=== PATIENT | female | born 1995 | race American Indian/Alaskan Native ===

== ENCOUNTER 2020-09-23 13:39 | Emergency (ER) | payer SELFPAY ==
[2020-09-23 14:07] VITALS: BP 117/68
--- NOTE | 2020-09-23 14:54 | Event Note ---
ED Screening Note ED Screening Note: +dysuria a few days ago +vaginal discharge states she is on abx for a dental issue and believes she may have a yeast infection no abd pain no n/v/d no fever LNMP: 08/26/2020 onchomycosis of the toes This initial assessment/diagnostic orders/clinical plan/treatment(s) is/are subject to change based on patients health status, clinical progression and re- assessment by fellow clinical providers in the ED. Further treatment and workup at subsequent clinical providers discretion. Patient/guardian urged not to elope from the ED as their condition may be serious if not clinically assessed and managed. Initial orders include: ua, urine preg
[2020-09-23 16:32] LABS: Bilirubin,Urine NEG (Negative); Blood,Urine NEG (Negative); Color,Urine Straw (Yellow); HCG Qualitative,Urine Negative (Negative); Mucus,Urine FEW /HPF; Protein,Urine <15 mg/dL mg/dL (Negative); Urobilinogen,Urine < 2.0 mg/dL (<2.0)
--- NOTE | 2020-09-23 16:36 | Emergency Department Report ---
ED General Adult HPI - General Chief complaint: Urogenital-Female Stated complaint: LOWER BODY PAIN Time Seen by Provider: 09/23/20 14:49 Source: patient Mode of arrival: Ambulatory Limitations: No Limitations - History of Present Illness Initial comments: 25-year-old female with no significant past medical history presented with chief complaints of "a toenail issue" and vaginal irritation. She states that she is currently on antibiotics for a dental infection and has been on those for about 1 week and for the past 3 days has had vaginal itching and a white discharge and is concerned she has a yeast infection. States that she is not really concerned for STIs today and believes this is antibiotic related. She also reports that for several weeks she has noticed that her toenails especially the great toes have been thickened and raising up off the nailbed. Symptoms are mild in nature, nonradiating, no alleviating or exacerbating factors. No other associated symptoms. Denies any abdominal pain, fevers, vomiting. - Related Data Previous Rx's Medication Instructions Recorded Last Taken Type Ibuprofen [Motrin] 600 mg PO Q8H PRN #20 tablet 04/05/19 Unknown Rx methOCARBAMOL [Robaxin TAB] 500 mg PO Q6H PRN #14 tablet 04/05/19 Unknown Rx traMADoL [Ultram] 50 mg PO Q6HR PRN #12 tablet 04/05/19 Unknown Rx Fluconazole [Diflucan TAB] 200 mg PO ONCE #2 tablet 09/23/20 Unknown Rx Terbinafine HCl [Antifungal 1% 1 applicatio TP BID #30 g 09/23/20 Unknown Rx CREAM] Allergies Allergy/AdvReac Type Severity Reaction Status Date / Time No Known Allergies Allergy Verified 04/05/19 09:59 ED Review of Systems ROS: Stated complaint: LOWER BODY PAIN Other details as noted in HPI Comment: All other systems reviewed and negative Genitourinary: as per HPI ED Past Medical Hx - Past Medical History Previous Medical History?: No - Surgical History Past Surgical History?: Yes Additional Surgical History: cyst removal left breast, cyst removal neck, faroese butt lift - Social History Smoking Status: Never Smoker Substance Use Type: None - Medications Home Medications: Home Medications Medication Instructions Recorded Confirmed Last Taken Type Ibuprofen [Motrin] 600 mg PO Q8H PRN #20 tablet 04/05/19 Unknown Rx methOCARBAMOL [Robaxin TAB] 500 mg PO Q6H PRN #14 tablet 04/05/19 Unknown Rx traMADoL [Ultram] 50 mg PO Q6HR PRN #12 tablet 04/05/19 Unknown Rx Fluconazole [Diflucan TAB] 200 mg PO ONCE #2 tablet 09/23/20 Unknown Rx Terbinafine HCl [Antifungal 1% 1 applicatio TP BID #30 g 09/23/20 Unknown Rx CREAM] ED Physical Exam - General Limitations: No Limitations General appearance: alert, in no apparent distress - Head Head exam: Present: atraumatic, normocephalic - Eye Eye exam: Present: normal appearance - ENT ENT exam: Present: mucous membranes moist - Neck Neck exam: Present: normal inspection - Respiratory Respiratory exam: Present: normal lung sounds bilaterally. Absent: respiratory distress - Cardiovascular Cardiovascular Exam: Present: regular rate, normal rhythm. Absent: systolic murmur, diastolic murmur, rubs, gallop - GI/Abdominal GI/Abdominal exam: Present: soft, normal bowel sounds. Absent: tenderness, guarding - External exam: Present: other (Patient deferred) - Extremities Exam Extremities exam: Present: other (Onychomycosis suspected to the great toenails however gel nail ukrainian in place limits assessment, no sign of bacterial infection) - Back Exam Back exam: Present: normal inspection - Neurological Exam Neurological exam: Present: alert, oriented X3 - Psychiatric Psychiatric exam: Present: normal affect, normal mood - Skin Skin exam: Present: warm, dry, intact, normal color. Absent: rash ED Course Vital Signs 09/23/20 14:04 Temperature 98.3 F Pulse Rate 85 Respiratory 16 Rate Blood Pressure 117/68 [Left] O2 Sat by Pulse 100 Oximetry ED Medical Decision Making - Medical Decision Making Patient present with complaints of abnormal toenails, exam consistent with onychomycosis. Will prescribe topical therapy first and advise if oral therapy necessary should follow up with primary care. She also has complaints of possible yeast infection after being started on antibiotics. She is also concerned about BV but states she is not concerned about STIs. She does not want a pelvic exam today understanding that I cannot officially diagnose BV without taking cultures. We will treat with a single dose of Flagyl and discharged on fluconazole and topical therapy for onychomycosis. - Differential Diagnosis Candidal vulvovaginitis, onychomycosis, BV, STI Critical care attestation.: If time is entered above; I have spent that time in minutes in the direct care of this critically ill patient, excluding procedure time. ED Disposition Clinical Impression: Onychomycosis, Vaginal yeast infection Disposition: TO HOME OR SELFCARE Is pt being admited?: No Condition: Good Instructions: Fungal Nail Infection, Vaginal Yeast Infection, Adult Prescriptions: Terbinafine HCl [Antifungal 1% CREAM] 1 applicatio TP BID #30 g Fluconazole [Diflucan TAB] 200 mg PO ONCE #2 tablet Referrals: MARY ELLEN TAYLOR MD [Staff Physician] - 3-5 Days Time of Disposition: 16:45
[2020-09-23] MEDS ORDERED: metroNIDAZOLE 500 MG TAB PO ONE (16:41)
== END 2020-09-23 17:04 | disposition home or self-care (01) ==
LOC: ED 13:39
DX: B35.1 Tinea unguium (principal); B37.3 Candidiasis of vulva and vagina; Z79.899 Other long term (current) drug therapy; Z98.890 Other specified postprocedural states
CPT/HCPCS: 81001; 81025

== ENCOUNTER 2020-12-25 20:35 | Emergency (ER) | payer SELFPAY ==
[2020-12-25 20:59] VITALS: BP 114/52
--- NOTE | 2020-12-25 21:47 | Emergency Department Report ---
ED ENT HPI - General Chief complaint: Dental/Oral Stated complaint: MOUTH PAIN Time Seen by Provider: 12/25/20 21:20 Source: patient Mode of arrival: Ambulatory Limitations: Language Barrier - History of Present Illness Initial comments: 25-year-old female presents to the ER today complaining of 2 to 3-day history of pain and swelling to her left lower gum. She states that she does not have a tooth in that area. She states that she think it might have broken off a long time ago. She reports mild discoloration to the gum. She denies any injury or bleeding. She denies any trismus, drooling, difficulty breathing or sore throat. She also complains of discoloration to the right great toenail. She states that it feels like it is about to come off. He states that she noticed it about 1 week ago. She denies any injury. She reports no other associated symptoms. MD complaint: tooth pain, other (Toenail discoloration) - Related Data Previous Rx's Medication Instructions Recorded Last Taken Type methOCARBAMOL [Robaxin TAB] 500 mg PO Q6H PRN #14 tablet 04/05/19 Unknown Rx Fluconazole [Diflucan TAB] 200 mg PO ONCE #2 tablet 09/23/20 Unknown Rx Terbinafine HCl [Antifungal 1% 1 applicatio TP BID #30 g 09/23/20 Unknown Rx CREAM] Clindamycin [Clindamycin CAP] 300 mg PO Q6H #40 capsule 12/25/20 Unknown Rx Ibuprofen [Motrin 600 MG tab] 600 mg PO Q8H PRN #20 tablet 12/25/20 Unknown Rx traMADoL [Ultram 50 MG tab] 50 mg PO Q6HR PRN #12 tablet 12/25/20 Unknown Rx Allergies Allergy/AdvReac Type Severity Reaction Status Date / Time No Known Allergies Allergy Verified 04/05/19 09:59 ED Dental HPI - General Chief complaint: Dental/Oral Stated complaint: MOUTH PAIN Time Seen by Provider: 12/25/20 21:20 Source: patient Mode of arrival: Ambulatory Limitations: Language Barrier - Related Data Previous Rx's Medication Instructions Recorded Last Taken Type methOCARBAMOL [Robaxin TAB] 500 mg PO Q6H PRN #14 tablet 04/05/19 Unknown Rx Fluconazole [Diflucan TAB] 200 mg PO ONCE #2 tablet 09/23/20 Unknown Rx Terbinafine HCl [Antifungal 1% 1 applicatio TP BID #30 g 09/23/20 Unknown Rx CREAM] Clindamycin [Clindamycin CAP] 300 mg PO Q6H #40 capsule 12/25/20 Unknown Rx Ibuprofen [Motrin 600 MG tab] 600 mg PO Q8H PRN #20 tablet 12/25/20 Unknown Rx traMADoL [Ultram 50 MG tab] 50 mg PO Q6HR PRN #12 tablet 12/25/20 Unknown Rx Allergies Allergy/AdvReac Type Severity Reaction Status Date / Time No Known Allergies Allergy Verified 04/05/19 09:59 ED Review of Systems ROS: Stated complaint: MOUTH PAIN Other details as noted in HPI Comment: All other systems reviewed and negative Constitutional: denies: chills, fever ENT: other (Right lower gum swelling, pain, discoloration) Respiratory: denies: cough, shortness of breath, wheezing Cardiovascular: denies: chest pain, palpitations Skin: change in hair/nails ED Past Medical Hx - Past Medical History Previous Medical History?: No - Surgical History Past Surgical History?: Yes Additional Surgical History: cyst removal left breast, cyst removal neck, corin gideon butt lift - Social History Smoking Status: Never Smoker Substance Use Type: None - Medications Home Medications: Home Medications Medication Instructions Recorded Confirmed Last Taken Type methOCARBAMOL [Robaxin TAB] 500 mg PO Q6H PRN #14 tablet 04/05/19 Unknown Rx Fluconazole [Diflucan TAB] 200 mg PO ONCE #2 tablet 09/23/20 Unknown Rx Terbinafine HCl [Antifungal 1% 1 applicatio TP BID #30 g 09/23/20 Unknown Rx CREAM] Clindamycin [Clindamycin CAP] 300 mg PO Q6H #40 capsule 12/25/20 Unknown Rx Ibuprofen [Motrin 600 MG tab] 600 mg PO Q8H PRN #20 tablet 12/25/20 Unknown Rx traMADoL [Ultram 50 MG tab] 50 mg PO Q6HR PRN #12 tablet 12/25/20 Unknown Rx ED Physical Exam - General Limitations: Language Barrier General appearance: alert, in no apparent distress - Head Head exam: Present: atraumatic, normocephalic, normal inspection - Eye Eye exam: Present: normal appearance, PERRL, EOMI Pupils: Present: normal accommodation - ENT ENT exam: Present: normal exam, mucous membranes moist, other (Patient has what looks like a dental abscess to her left lower gum, around the area of the left first molar; no apparent tooth to that area; mild ecchymosis noted to the gum; no facial cellulitis no trismus or drooling) - Neck Neck exam: Present: normal inspection, full ROM, lymphadenopathy (Mild left; no evidence of Alen). Absent: meningismus - Respiratory Respiratory exam: Present: normal lung sounds bilaterally. Absent: respiratory distress - Cardiovascular Cardiovascular Exam: Present: regular rate, normal rhythm, normal heart sounds - Extremities Exam Extremities exam: Present: other (Right great toenail noted to be thickened, and discolored, consistent with possible fungal infection; no evidence of secondary bacterial infection) - Neurological Exam Neurological exam: Present: alert, oriented X3, CN II-XII intact - Psychiatric Psychiatric exam: Present: normal affect, normal mood - Skin Skin exam: Present: intact ED Course Vital Signs 12/25/20 20:54 Temperature 99.3 F Pulse Rate 72 Respiratory 16 Rate Blood Pressure 114/52 O2 Sat by Pulse 94 Oximetry Critical care attestation.: If time is entered above; I have spent that time in minutes in the direct care of this critically ill patient, excluding procedure time. ED Disposition Clinical Impression: Dental abscess, Fungal toenail infection Disposition: TO HOME OR SELFCARE Is pt being admited?: No Does the pt Need Aspirin: No Condition: Stable Instructions: Fungal Nail Infection Additional Instructions: Take the pain medication and antibiotics as prescribed. Follow-up with the local dental clinic given on your discharge instructions. Also follow-up with a local ball machine operator for further evaluation of your toenail as discussed. Return to the ER if your symptoms changes or worsens in any way. Prescriptions: Clindamycin [Clindamycin CAP] 300 mg PO Q6H #40 capsule Ibuprofen [Motrin 600 MG tab] 600 mg PO Q8H PRN #20 tablet PRN Reason: Pain traMADoL [Ultram 50 MG tab] 50 mg PO Q6HR PRN #12 tablet PRN Reason: Pain Referrals: [facility] [Outside] - 3-5 Days Time of Disposition: 21:47
[2020-12-25] MEDS ORDERED: traMADol 50 MG TAB PO ONE (21:49)
[2020-12-25] MEDS ORDERED: CLINDAMYCIN 300 MG CAP PO ONE (21:49)
== END 2020-12-25 22:47 | disposition home or self-care (01) ==
LOC: ED 20:35
DX: K04.7 Periapical abscess without sinus (principal); B35.1 Tinea unguium; Z98.890 Other specified postprocedural states; Z79.899 Other long term (current) drug therapy
CPT/HCPCS: 99282